=== PATIENT | male | born 1935 | race Caucasian/White ===

== ENCOUNTER → 2016-09-08 | Outpatient (CLI) | payer MEDICARE ==
[2016-09-08 16:36] LABS: BICARBONATE 28.9 MEQ/L (21.0-32.0); POTASSIUM 3.9 MEQ/L (3.5-5.1)
== END ==
LOC: PLAB 11:14
DX: Z79.899 Other long term (current) drug therapy (principal)
CPT/HCPCS: 36415; 80048

== ENCOUNTER → 2016-09-30 | Outpatient (CLI) | payer MEDICARE ==
[2016-09-30 09:10] LABS: BASOPHIL % 0.7 % (0.0-2.0); EOSINOPHIL # 0.4 TH/MM3 (0-0.4); EOSINOPHIL % 6.1 % (0.0-4.0); HEMATOCRIT 50.6 % (39.0-51.0); HEMO FLAGS DIFF FINAL; LYMPH % 31.3 % (9.0-44.0); LYMPHOCYTE # 1.8 TH/MM3 (1.0-4.8); MEAN CELL VOLUME 88.4 FL (80.0-100.0); MEAN CORPUSCULAR HEMOGLOBIN 30.8 PG (27.0-34.0); MEAN CORPUSCULAR HGB CONC 34.8 % (32.0-36.0); NEUT % 52.9 % (16.0-70.0); PLATELET COUNT 132 TH/MM3 (150-450); RED BLOOD COUNT 5.73 MIL/MM3 (4.50-5.90); RED CELL DISTRIBUTION WIDTH 13.9 % (11.6-17.2); WHITE BLOOD COUNT 5.8 TH/MM3 (4.0-11.0)
[2016-09-30 09:36] LABS: ALKALINE PHOSPHATASE 75 U/L (45-117); ALT (GPT) 31 U/L (12-78); ANION GAP 7 MEQ/L (5-15); AST (GOT) 26 U/L (15-37); BICARBONATE 28.9 MEQ/L (21.0-32.0); BLOOD UREA NITROGEN 10 MG/DL (7-18); CHLORIDE 102 MEQ/L (98-107); FREE T4 1.24 NG/DL (0.76-1.46); GLOMERULAR FILTRATION RATE 56 ML/MIN (>89); GLUCOSE,FASTING 108 MG/DL (74-99); HDL CHOLESTEROL 45.1 MG/DL (40.0-60.0); LDL CHOLESTEROL 107 MG/DL (0-99); SODIUM (NA) 138 MEQ/L (136-145); TOTAL BILIRUBIN ADULT 0.8 MG/DL (0.2-1.0)
== END ==
LOC: PLAB 06:41
PROVIDERS: ATTEND Family Medicine
DX: I10 Essential (primary) hypertension (principal); I48.91 Unspecified atrial fibrillation; E03.9 Hypothyroidism, unspecified; G70.00 Myasthenia gravis without (acute) exacerbation; N40.0 Benign prostatic hyperplasia without lower urinary tract symptoms
CPT/HCPCS: 36415; 80053; 80061; 84153; 84439; 84443; 85025

== ENCOUNTER → 2016-12-09 | Outpatient (CLI) | payer MEDICARE ==
[2016-12-09 10:12] LABS: POTASSIUM 4.1 MEQ/L (3.5-5.1)
[2016-12-09 10:15] LABS: BICARBONATE 30.7 MEQ/L (21.0-32.0)
== END ==
LOC: PLAB 08:59
DX: Z79.899 Other long term (current) drug therapy (principal)
CPT/HCPCS: 36415; 80048

== ENCOUNTER → 2017-03-17 | Outpatient (CLI) | payer MEDICARE ==
[2017-03-17 09:57] LABS: ANION GAP 7 MEQ/L (5-15); AST (GOT) 21 U/L (15-37); BICARBONATE 29.8 MEQ/L (21.0-32.0); BLOOD UREA NITROGEN 12 MG/DL (7-18); CHLORIDE 99 MEQ/L (98-107); GLOMERULAR FILTRATION RATE 58 ML/MIN (>89); POTASSIUM 3.9 MEQ/L (3.5-5.1); SODIUM (NA) 136 MEQ/L (136-145)
[2017-03-17 10:03] LABS: ALKALINE PHOSPHATASE 73 U/L (45-117); ALT (GPT) 31 U/L (12-78)
== END ==
LOC: PLAB 07:37
DX: G70.00 Myasthenia gravis without (acute) exacerbation (principal); Z51.81 Encounter for therapeutic drug level monitoring; Z79.899 Other long term (current) drug therapy
CPT/HCPCS: 36415; 80053

== ENCOUNTER → 2017-06-14 | Outpatient (CLI) | payer MEDICARE ==
[2017-06-14 16:29] LABS: ANION GAP 3 MEQ/L (5-15); AST (GOT) 18 U/L (15-37); BICARBONATE 33.7 MEQ/L (21.0-32.0); BLOOD UREA NITROGEN 13 MG/DL (7-18); CHLORIDE 101 MEQ/L (98-107); GLOMERULAR FILTRATION RATE 54 ML/MIN (>89); POTASSIUM 4.2 MEQ/L (3.5-5.1); SODIUM (NA) 138 MEQ/L (136-145)
[2017-06-14 16:31] LABS: ALT (GPT) 29 U/L (12-78)
[2017-06-14 16:32] LABS: ALKALINE PHOSPHATASE 78 U/L (45-117); TOTAL BILIRUBIN ADULT 0.7 MG/DL (0.2-1.0)
== END ==
LOC: PLAB 14:05
DX: G70.00 Myasthenia gravis without (acute) exacerbation (principal); Z51.81 Encounter for therapeutic drug level monitoring; Z79.899 Other long term (current) drug therapy
CPT/HCPCS: 36415; 80053

== ENCOUNTER → 2017-09-20 | Outpatient (CLI) | payer MEDICARE ==
[2017-09-20 14:52] LABS: ALBUMIN 3.3 GM/DL (3.4-5.0); AST (GOT) 25 U/L (15-37); BICARBONATE 31.4 MEQ/L (21.0-32.0); BLOOD UREA NITROGEN 13 MG/DL (7-18); CALCIUM 8.5 MG/DL (8.5-10.1); CHLORIDE 99 MEQ/L (98-107); CREATININE 1.21 MG/DL (0.60-1.30); GLOMERULAR FILTRATION RATE 58 ML/MIN (>89); GLUCOSE,RANDOM 132 MG/DL (74-106); SODIUM (NA) 137 MEQ/L (136-145)
[2017-09-20 14:56] LABS: ALKALINE PHOSPHATASE 75 U/L (45-117); ALT (GPT) 39 U/L (12-78); TOTAL BILIRUBIN ADULT 0.8 MG/DL (0.2-1.0); TOTAL PROTEIN 7.2 GM/DL (6.4-8.2)
== END ==
LOC: PLAB 12:00
DX: G70.00 Myasthenia gravis without (acute) exacerbation (principal); Z51.81 Encounter for therapeutic drug level monitoring; Z79.899 Other long term (current) drug therapy
CPT/HCPCS: 36415; 80053

== ENCOUNTER 2017-12-20 18:13 | Emergency (ER) | payer MEDICARE ==
[~2017-12-20] VITALS: Ht 185.4 cm; Wt 120.0 kg
[2017-12-20] MEDS ORDERED: AZITHROMYCIN INJ 500 MG in SODIUM CHLOR 0.9% 250 ML INJ 250 ML IV ONE (18:15)
[2017-12-20] MEDS ORDERED: SODIUM CHLORIDE 0.9% FLUSH 10 ML FLUSH IVF PRN (18:15)
[2017-12-20] MEDS ORDERED: MAGNESIUM SULFATE 1 GM PREMIX 100 ML IV ONE (18:15)
[2017-12-20] MEDS ORDERED: RESP: ALBUTEROL 2.5 MG/3 ML NEB (PRN) ONE (18:18)
[2017-12-20] MEDS: RESP: ALBUTEROL 2.5 MG/3 ML NEB (SCH) INH (18:22)
--- NOTE | 2017-12-20 18:22 | PD ---
HPI Chief Complaint: Shortness of breath Time Seen by Provider: 18:15 Travel History International Travel<30 days: No Contact w/Intl Traveler<30days: No Traveled to known affect area: No History of Present Illness HPI Patient has had 2 weeks worth of productive cough that he did not bring up to his primary care doctor. However over the last 2 days it seems to have been worsening with unaccompanied shortness of breath. Patient was seen by her primary care over the last 2 days and given a prescription for cough medicine. Patient states that he continues to have the productive cough, with yellowish to greenish sputum, and that he is shortness of breath is now present even at rest. Patient used to only get shortness of breath with wheezing when he would exert himself. Patient denies any alleviating or aggravating factors. Patient denies any associated factors such as fever, rash, sore throat, runny nose, nausea, vomiting, diarrhea, urgency/frequency/dysuria. Primary care doctor is Dr. pedro Allergy to penicillin he develops a rash pmh: Atrial fibrillation on Coumadin, myasthenia gravis on cyclosporine, hypertension on ramipril, hypercholesterolemia. The patient vehemently denies any COPD history or any CHF history. PFSH Social History Tobacco Use: No Allergies-Medications (Allergen,Severity, Reaction): Coded Allergies: Penicillins (Verified Allergy, Mild, Rash, 12/21/17) Reported Meds & Prescriptions Reported Meds & Active Scripts Active [guaiFENesin ER] 600 MG Tabcr 600 Mg PO BID Furosemide 20 Mg Tab 20 Mg PO DAILY Metoprolol Tartrate 25 Mg Tab 12.5 Mg PO Q12HR Azithromycin 250 Mg Tab 250 Mg PO DAILY Proair Hfa 8.5 GM Inh (Albuterol Sulfate) 90 Mcg/Act Aer 2 Puff INH Q4-6H PRN 108 mcg/actuation Reported Tums (Calcium Carbonate (Antacid)) 500 Mg Chew 500 Mg CHEW PRN Warfarin 7.5 Mg Tab 7.5 Mg PO DAILY Cyclosporine 25 Mg Cap 25 Mg PO Levothyroxine (Levothyroxine Sodium) 50 Mcg Tab 50 Mcg PO DAILY Ramipril 5 Mg Cap 5 Mg PO DAILY Finasteride 5 Mg Tab 5 Mg DAILY Do not crush. Review of Systems General / Constitutional: No: Fever Eyes: No: Visual changes HENT: No: Headaches Cardiovascular: No: Chest Pain or Discomfort Respiratory: Positive: Cough, Wheezing Gastrointestinal: No: Abdominal Pain Genitourinary: No: Dysuria Musculoskeletal: No: Pain Skin: No Rash Neurologic: No: Weakness Psychiatric: No: Depression Endocrine: No: Polydipsia Hematologic/Lymphatic: No: Easy Bruising Physical Exam Narrative GENERAL: SKIN: Warm and dry. HEAD: Atraumatic. Normocephalic. EYES: Pupils equal and round. No scleral icterus. No injection or drainage. ENT: No nasal bleeding or discharge. Mucous membranes pink and moist. NECK: Trachea midline. No JVD. CARDIOVASCULAR: Tachycardic rate and irregularly irregular rhythm. RESPIRATORY: Tachypneic, wheezing bilaterally, decreased tidal volume bilaterally GASTROINTESTINAL: Abdomen soft, non-tender, nondistended MUSCULOSKELETAL: Extremities without clubbing, cyanosis, or edema. No obvious deformities. NEUROLOGICAL: Awake and alert. No obvious cranial nerve deficits. Motor grossly within normal limits. Five out of 5 muscle strength in the arms and legs. Normal speech. PSYCHIATRIC: Appropriate mood and affect; insight and judgment normal. Data Data Last Documented VS Vital Signs Date Time Temp Pulse Resp B/P (MAP) Pulse Ox O2 Delivery O2 Flow Rate FiO2 12/20/17 21:06 84 20 130/68 (88) 97 12/20/17 19:58 Room Air 12/20/17 19:13 2.00 12/20/17 19:07 99.0 Orders Orders Complete Blood Count With Diff (12/20/17 18:15) Comprehensive Metabolic Panel (12/20/17 18:15) B-Type Natriuretic Peptide (12/20/17 18:15) Act Partial Throm Time (Ptt) (12/20/17 18:15) Prothrombin Time / Inr (Pt) (12/20/17 18:15) Ckmb (Isoenzyme) Profile (12/20/17 18:15) Troponin I (12/20/17 18:15) Influenzae A/B Antigen (12/20/17 18:15) Iv Access Insert/Monitor (12/20/17 18:15) Electrocardiogram (12/20/17 18:15) Ecg Monitoring (12/20/17 18:15) Oximetry (12/20/17 18:15) Oxygen Administration (12/20/17 18:15) Chest, Single Ap (12/20/17 18:15) Sodium Chloride 0.9% Flush (Ns Flush) (12/20/17 18:15) Azithromycin Inj (Zithromax Inj) (12/20/17 18:15) Magnesium Sulfate 1 Gm Premix (Magnesium (12/20/17 18:15) Albuterol Neb (Albuterol Neb) (12/20/17 18:15) Albuterol Neb (Albuterol Neb) (12/20/17 18:18) Metoprolol Tartrate Inj (Lopressor Inj) (12/20/17 19:30) Ed Discharge Order (12/20/17 20:58) Labs Laboratory Tests Test 12/20/17 18:35 White Blood Count 12.4 TH/MM3 Red Blood Count 5.34 MIL/MM3 Hemoglobin 17.0 GM/DL Hematocrit 49.5 % Mean Corpuscular Volume 92.6 FL Mean Corpuscular Hemoglobin 31.8 PG Mean Corpuscular Hemoglobin Concent 34.3 % Red Cell Distribution Width 12.8 % Platelet Count 133 TH/MM3 Mean Platelet Volume 9.7 FL Neutrophils (%) (Auto) 72.3 % Lymphocytes (%) (Auto) 16.1 % Monocytes (%) (Auto) 8.6 % Eosinophils (%) (Auto) 2.4 % Basophils (%) (Auto) 0.6 % Neutrophils # (Auto) 8.9 TH/MM3 Lymphocytes # (Auto) 2.0 TH/MM3 Monocytes # (Auto) 1.1 TH/MM3 Eosinophils # (Auto) 0.3 TH/MM3 Basophils # (Auto) 0.1 TH/MM3 CBC Comment DIFF FINAL Differential Comment Prothrombin Time 25.7 SEC Prothromb Time International Ratio 2.5 RATIO Activated Partial Thromboplast Time 35.4 SEC Blood Urea Nitrogen 9 MG/DL Creatinine 1.00 MG/DL Random Glucose 121 MG/DL Total Protein 7.3 GM/DL Albumin 3.3 GM/DL Calcium Level 8.3 MG/DL Alkaline Phosphatase 69 U/L Aspartate Amino Transf (AST/SGOT) 16 U/L Alanine Aminotransferase (ALT/SGPT) 26 U/L Total Bilirubin 1.2 MG/DL Sodium Level 131 MEQ/L Potassium Level 3.9 MEQ/L Chloride Level 97 MEQ/L Carbon Dioxide Level 26.0 MEQ/L Anion Gap 8 MEQ/L Estimat Glomerular Filtration Rate 72 ML/MIN Total Creatine Kinase 99 U/L Troponin I LESS THAN 0.02 NG/ML B-Type Natriuretic Peptide 109 PG/ML MDM Medical Decision Making Medical Screen Exam Complete: Yes Emergency Medical Condition: Yes Medical Record Reviewed: Yes Interpretation(s) EKG shows atrial fibrillation at about 120 bpm, but no evidence of any ST elevation OK pattern. Differential Diagnosis Pleural effusion versus pulmonary edema versus pneumonia versus STEMI versus non -STEMI Narrative Course Patient CBC shows leukocytosis of 12,000, minimal neutrophilia, no anemia, and slightly lower platelet count of 133,000 however the patient is on cyclosporine. Patient is adequately anticoagulated with an INR 2.5 Electrolytes are all within normal limits with the normal kidney function, normal liver function, first set of cardiac enzymes negative, and the first beta natruretic peptide of 109 which is within normal limits. on reevaluation patient isable to ambulation test passed without any hypoxemia, also able to tolerate po, and although rhythm remained afib ...rate has remained under a 100 with cvr Diagnosis Primary Impression: Acute bronchitic bronchospasm Additional Impression: Atrial fibrillation adequately anticoagulated Patient Instructions: Acute Bronchitis (ED), General Instructions Scripts Albuterol 8.5 GM Inh (Proair Hfa 8.5 GM Inh) 90 Mcg/Act Aer 2 PUFF INH Q4-6H Y for SHORTNESS OF BREATH, #1 INHALER 0 Refills 108 mcg/actuation Prov: Soren Puga MD 12/20/17 Disposition: 01 DISCHARGE HOME Condition: Stable Vu Connolly MD Dec 20, 2017 18:22
[2017-12-20 18:55] LABS: AUTOMATED NEUTROPHIL # 8.9 TH/MM3 (1.8-7.7); BASOPHIL # 0.1 TH/MM3 (0-0.2); BASOPHIL % 0.6 % (0.0-2.0); EOSINOPHIL # 0.3 TH/MM3 (0-0.4); EOSINOPHIL % 2.4 % (0.0-4.0); HEMATOCRIT 49.5 % (39.0-51.0); LYMPH % 16.1 % (9.0-44.0); MEAN CELL VOLUME 92.6 FL (80.0-100.0); MEAN CORPUSCULAR HEMOGLOBIN 31.8 PG (27.0-34.0); MEAN CORPUSCULAR HGB CONC 34.3 % (32.0-36.0); MEAN PLATELET VOLUME 9.7 FL (7.0-11.0); MONO % 8.6 % (0.0-8.0); MONOCYTE # 1.1 TH/MM3 (0-0.9); NEUT % 72.3 % (16.0-70.0); PLATELET COUNT 133 TH/MM3 (150-450); RED BLOOD COUNT 5.34 MIL/MM3 (4.50-5.90); RED CELL DISTRIBUTION WIDTH 12.8 % (11.6-17.2); WHITE BLOOD COUNT 12.4 TH/MM3 (4.0-11.0)
--- NOTE | 2017-12-20 18:56 | RADRPT ---
EXAM DATE: 12/20/2017 6:52 PM EDT AGE/SEX: 82 years / Male INDICATIONS: Shortness of breath. CLINICAL DATA: This is the patient's initial encounter. Patient reports that signs and symptoms have been present for 1 day and indicates a pain score of 0/10. MEDICAL/SURGICAL HISTORY: None. None. COMPARISON: No prior exams available for comparison. FINDINGS: A single AP view of the chest demonstrates no significant focal pleural or parenchymal opacities. Mil d interstitial prominence. The cardiomediastinal contours are unremarkable. Osseous structures are i ntact. CONCLUSION: 1. Senescent changes without acute cardiopulmonary disease. Electronically signed by: Markus Byers MD 12/20/2017 6:55 PM EDT
[2017-12-20 19:01] LABS: CHLORIDE 97 MEQ/L (98-107); SODIUM (NA) 131 MEQ/L (136-145)
[2017-12-20 19:04] LABS: CALCIUM 8.3 MG/DL (8.5-10.1)
[2017-12-20 19:05] VITALS: O2SAT 95
[2017-12-20 19:05] LABS: ALBUMIN 3.3 GM/DL (3.4-5.0); BLOOD UREA NITROGEN 9 MG/DL (7-18); GLUCOSE,RANDOM 121 MG/DL (74-106)
[2017-12-20 19:07] VITALS: BP 161/87; PULSE 114; RESP 20; TEMP 99; O2SAT 95
[2017-12-20 19:07] LABS: INTERNATIONAL NORMALIZED RATIO 2.5 RATIO; PROTHROMBIN TIME - PATIENT 25.7 SEC (9.8-11.6)
[2017-12-20 19:08] LABS: ALT (GPT) 26 U/L (12-78); AST (GOT) 16 U/L (15-37); GLOMERULAR FILTRATION RATE 72 ML/MIN (>89)
[2017-12-20 19:10] LABS: TOTAL BILIRUBIN ADULT 1.2 MG/DL (0.2-1.0); TOTAL PROTEIN 7.3 GM/DL (6.4-8.2)
[2017-12-20 19:11] LABS: ALKALINE PHOSPHATASE 69 U/L (45-117)
[2017-12-20 19:13] LABS: TROPONIN I LESS THAN 0.02 NG/ML (0.02-0.05)
[2017-12-20] MEDS ORDERED: ZITHTAB PO (19:19)
[2017-12-20] MEDS ORDERED: GUAISYP4 PO (19:19)
[2017-12-20] MEDS ORDERED: COUM5TAB PO (19:24)
[2017-12-20] MEDS ORDERED: FINA5TAB2 ×2 (19:24)
[2017-12-20] MEDS ORDERED: RAMI5CAP PO ×2 (19:24)
[2017-12-20] MEDS ORDERED: DOXA1TAB34 PO ×2 (19:24)
[2017-12-20] MEDS ORDERED: CYCL25CA4 PO ×2 (19:24)
[2017-12-20] MEDS ORDERED: HYDR12.57 PO ×2 (19:24)
[2017-12-20] MEDS ORDERED: LEVO50TA4 PO ×2 (19:24)
[2017-12-20] MEDS: METOPROLOL TARTRATE 5 MG/5 ML VIAL IVS SCH ×3 (19:40→20:01)
[2017-12-20 19:51] VITALS: BP 148/72; PULSE 120; RESP 20; O2SAT 95
[2017-12-20 19:58] VITALS: BP 126/54; PULSE 92; RESP 20; O2SAT 96
[2017-12-20 20:07] VITALS: BP 128/64; PULSE 79
[2017-12-20 21:06] VITALS: BP 130/68
[2017-12-20] MEDS ORDERED: ALBUAER3 INH (21:09)
--- NOTE | 2017-12-20 21:12 | PD ---
Physical Exam Time Seen by Provider: 21:[address] Connolly discharge this patient but this patient had some wheezes and wanted a prescription. He apparently did get good relief with the DuoNeb treatments. He will be given an albuterol HFA puffer since he does not have a nebulizer machine at home. He needs to follow-up with his primary care physician as soon as possible. Data Data Last Documented VS Vital Signs Date Time Temp Pulse Resp B/P (MAP) Pulse Ox O2 Delivery O2 Flow Rate FiO2 12/20/17 21:06 84 20 130/68 (88) 97 12/20/17 19:58 Room Air 12/20/17 19:13 2.00 12/20/17 19:07 99.0 Orders Orders Complete Blood Count With Diff (12/20/17 18:15) Comprehensive Metabolic Panel (12/20/17 18:15) B-Type Natriuretic Peptide (12/20/17 18:15) Act Partial Throm Time (Ptt) (12/20/17 18:15) Prothrombin Time / Inr (Pt) (12/20/17 18:15) Ckmb (Isoenzyme) Profile (12/20/17 18:15) Troponin I (12/20/17 18:15) Influenzae A/B Antigen (12/20/17 18:15) Iv Access Insert/Monitor (12/20/17 18:15) Electrocardiogram (12/20/17 18:15) Ecg Monitoring (12/20/17 18:15) Oximetry (12/20/17 18:15) Oxygen Administration (12/20/17 18:15) Chest, Single Ap (12/20/17 18:15) Sodium Chloride 0.9% Flush (Ns Flush) (12/20/17 18:15) Azithromycin Inj (Zithromax Inj) (12/20/17 18:15) Magnesium Sulfate 1 Gm Premix (Magnesium (12/20/17 18:15) Albuterol Neb (Albuterol Neb) (12/20/17 18:15) Albuterol Neb (Albuterol Neb) (12/20/17 18:18) Metoprolol Tartrate Inj (Lopressor Inj) (12/20/17 19:30) Ed Discharge Order (12/20/17 20:58) Labs Laboratory Tests Test 6/19/18 18:35 White Blood Count 12.4 TH/MM3 Red Blood Count 5.34 MIL/MM3 Hemoglobin 17.0 GM/DL Hematocrit 49.5 % Mean Corpuscular Volume 92.6 FL Mean Corpuscular Hemoglobin 31.8 PG Mean Corpuscular Hemoglobin Concent 34.3 % Red Cell Distribution Width 12.8 % Platelet Count 133 TH/MM3 Mean Platelet Volume 9.7 FL Neutrophils (%) (Auto) 72.3 % Lymphocytes (%) (Auto) 16.1 % Monocytes (%) (Auto) 8.6 % Eosinophils (%) (Auto) 2.4 % Basophils (%) (Auto) 0.6 % Neutrophils # (Auto) 8.9 TH/MM3 Lymphocytes # (Auto) 2.0 TH/MM3 Monocytes # (Auto) 1.1 TH/MM3 Eosinophils # (Auto) 0.3 TH/MM3 Basophils # (Auto) 0.1 TH/MM3 CBC Comment DIFF FINAL Differential Comment Prothrombin Time 25.7 SEC Prothromb Time International Ratio 2.5 RATIO Activated Partial Thromboplast Time 35.4 SEC Blood Urea Nitrogen 9 MG/DL Creatinine 1.00 MG/DL Random Glucose 121 MG/DL Total Protein 7.3 GM/DL Albumin 3.3 GM/DL Calcium Level 8.3 MG/DL Alkaline Phosphatase 69 U/L Aspartate Amino Transf (AST/SGOT) 16 U/L Alanine Aminotransferase (ALT/SGPT) 26 U/L Total Bilirubin 1.2 MG/DL Sodium Level 131 MEQ/L Potassium Level 3.9 MEQ/L Chloride Level 97 MEQ/L Carbon Dioxide Level 26.0 MEQ/L Anion Gap 8 MEQ/L Estimat Glomerular Filtration Rate 72 ML/MIN Total Creatine Kinase 99 U/L Troponin I LESS THAN 0.02 NG/ML B-Type Natriuretic Peptide 109 PG/ML [facility] Medical Record Reviewed: Yes Supervised Visit with MAYNOR: No Interpretation(s) The chest x-ray shows senescent changes and no acute change. Differential Diagnosis COPD with acute exacerbation, bronchitis with bronchospasm, pneumonia Narrative Course The patient apparently has bronchitis with bronchospasm. He will be given an HFA albuterol puffer. Diagnosis Primary Impression: Acute bronchitic bronchospasm Additional Impression: Atrial fibrillation adequately anticoagulated Patient Instructions: General Instructions, Acute Bronchitis (ED) Additional Instruction: I discussed, follow-up with your primary care physician as soon as possible. If her wheezing gets worse, you need to the emergency department. Scripts Albuterol 8.5 GM Inh (Proair Hfa 8.5 GM Inh) 90 Mcg/Act Aer 2 PUFF INH Q4-6H Y for SHORTNESS OF BREATH, #1 INHALER 0 Refills 108 mcg/actuation Prov: Soren Puga MD 12/20/17 Disposition: 01 DISCHARGE HOME Condition: Stable Soren Puga MD Dec 20, 2017 21:12
--- NOTE | 2017-12-21 07:31 | EKG ---
Date Performed: 12/20/2017 Time Performed: 18:41:38 PTAGE: 82 years EKG: ATRIAL FIBRILLATION WITH RAPID VENTRICULAR RESPONSE SEPTAL MYOCARDIAL INFARCTION ABNORMAL E CG NO PREVIOUS TRACING DOCTOR: Paulo Bradshaw Interpretating Date/Time 12/21/2017 07:29:04
[2017-12-21] MEDS ORDERED: WARF-21 PO ×2 (13:56)
[2017-12-21] MEDS ORDERED: TUMS500C CHEW ×2 (20:38)
== END 2017-12-20 21:24 | disposition home or self-care (01) ==
LOC: PHED 18:13
DX: J20.9 Acute bronchitis, unspecified (principal); I48.91 Unspecified atrial fibrillation; G70.00 Myasthenia gravis without (acute) exacerbation; I10 Essential (primary) hypertension; E78.00 Pure hypercholesterolemia, unspecified; Z88.0 Allergy status to penicillin; Z79.01 Long term (current) use of anticoagulants; Z79.899 Other long term (current) drug therapy
CPT/HCPCS: 71045; 80053; 82550; 83880; 84484; 85025; 85610; 85730; 87804; 93005; 94664; 96365; 96368; 99285; J0456; J3475; J7050; J7613

== ENCOUNTER 2017-12-21 13:31 | Inpatient (IN) | payer MEDICARE ==
[2017-12-21] VITALS (7 sets, daily range): BP systolic 125–154; BP diastolic 72–84; PULSE 95–112; RESP 16–26; TEMP 97.9–98; O2SAT 93–98
[~2017-12-21] VITALS: Ht 185.4 cm; Wt 120.0 kg
[~2017-12-21 13:31] MED LIST: ALBUAER3 INH; COUM5TAB PO; CYCL25CA4 PO; DOXA1TAB34 PO; FINA5TAB2; GUAISYP4 PO; HYDR12.57 PO; LEVO50TA4 PO; RAMI5CAP PO; ZITHTAB PO
[2017-12-21] MEDS ORDERED: WARF-21 PO ×2 (13:56)
[2017-12-21] MEDS ORDERED: SODIUM CHLORIDE 0.9% FLUSH 10 ML FLUSH IVF PRN (14:00)
[2017-12-21] MEDS: RESP: ALBUTEROL 2.5 MG/IPRATROPIUM 0.5 MG NEB (SCH) INH (14:04)
--- NOTE | 2017-12-21 14:06 | PD ---
HPI Chief Complaint: Respiratory Symptoms Time Seen by Provider: 13:40 Travel History International Travel<30 days: No Contact w/Intl Traveler<30days: No Traveled to known affect area: No History of Present Illness HPI 82-year-old male with a history of atrial fibrillation on Coumadin presents emergency department for evaluation of shortness of breath, cough, congestion that has been persistent. Says he went to the emergency department yesterday where he was given antibiotics, inhaler, and cough syrup. Says he received his first dose of medications last night and he took a second dose this morning however, says that he has been persistently short of breath. Says that his cold like symptoms started 2 weeks ago and has been progressively getting worse. Says he feels short of breath and "feeling crappy". He has had a productive cough with yellow and green sputum along with clear rhinorrhea. he denies fevers or chills. Denies chest pain, nausea, vomiting or diarrhea. He does not believe that he took his inhaler properly which is the reason for shortness of breath today. Says he did have recent travel of 6 hrs in a car. Denies history of DVT/PE. Denies history of COPD. Denies current tobacco use and says he quit 40 years ago. State compliance with coumadin. PFSH Past Medical History Hx Anticoagulant Therapy: Yes Atrial Fibrillation: Yes Heart Rhythm Problems: Yes Cardiovascular Problems: Yes (AFIB) COPD: Yes Diminished Hearing: No Hypertension: Yes Thyroid Disease: Yes Past Surgical History Appendectomy: Yes Tonsillectomy: Yes Other Surgery: Yes (nasal septoplasty) Social History Alcohol Use: Yes Tobacco Use: No Substance Use: No Allergies-Medications (Allergen,Severity, Reaction): Coded Allergies: Penicillins (Verified Allergy, Mild, Rash, 12/21/17) Reported Meds & Prescriptions Reported Meds & Active Scripts Active Proair Hfa 8.5 GM Inh (Albuterol Sulfate) 90 Mcg/Act Aer 2 Puff INH Q4-6H PRN 108 mcg/actuation Reported Warfarin 7.5 Mg Tab 7.5 Mg PO DAILY Cyclosporine 25 Mg Cap 25 Mg PO Doxazosin (Doxazosin Mesylate) 4 Mg Tab 4 Mg PO DAILY Levothyroxine (Levothyroxine Sodium) 50 Mcg Tab 50 Mcg PO DAILY Hydrochlorothiazide 12.5 Mg Cap 12.5 Mg PO DAILY Ramipril 5 Mg Cap 5 Mg PO DAILY Finasteride 5 Mg Tab 5 Mg DAILY Do not crush. Review of Systems Except as stated in HPI: all other systems reviewed are Neg Physical Exam Narrative GENERAL: Well developed, nourished in mild distress, tripoding in the room but able to talk in full sentences SKIN: Focused skin assessment warm/dry. HEAD: Atraumatic. Normocephalic. EYES: Pupils equal and round. No scleral icterus. No injection or drainage. ENT: No nasal bleeding or discharge. Mucous membranes pink and moist. NECK: Trachea midline. No JVD. No lymphadenopathy. Mucous membranes slightly dry CARDIOVASCULAR: Regular rate and rhythm. No murmur appreciated. RESPIRATORY: No accessory muscle use. Clear to auscultation somewhat decreased breath sounds diffusely GASTROINTESTINAL: Abdomen soft, non-tender, nondistended. Hepatic and splenic margins not palpable. No CVA tenderness MUSCULOSKELETAL: No obvious deformities. No clubbing. No cyanosis. No edema. Homans sign negative bilaterally NEUROLOGICAL: Awake and alert. No obvious cranial nerve deficits. Motor grossly within normal limits. Normal speech. PSYCHIATRIC: Appropriate mood and affect; insight and judgment normal. Data Data Last Documented VS Vital Signs Date Time Temp Pulse Resp B/P (MAP) Pulse Ox O2 Delivery O2 Flow Rate FiO2 12/21/17 14:00 93 Nasal Cannula 3.00 12/21/17 13:50 24 12/21/17 13:33 98.0 95 151/84 (106) Orders Orders Complete Blood Count With Diff (12/21/17 13:50) Comprehensive Metabolic Panel (12/21/17 13:50) Act Partial Throm Time (Ptt) (12/21/17 13:50) Prothrombin Time / Inr (Pt) (12/21/17 13:50) Magnesium (Mg) (12/21/17 13:50) Troponin I (12/21/17 13:50) Urinalysis - C+S If Indicated (12/21/17 13:50) Iv Access Insert/Monitor (12/21/17 13:50) Electrocardiogram (12/21/17 13:50) Ecg Monitoring (12/21/17 13:50) Oximetry (12/21/17 13:50) Oxygen Administration (12/21/17 13:50) Chest, Pa & Lat (12/21/17 13:50) Sodium Chloride 0.9% Flush (Ns Flush) (12/21/17 14:00) Albuterol-Ipratropium Neb (Duoneb Neb) (12/21/17 14:00) B-Type Natriuretic Peptide (12/21/17 13:50) Admit Order (Ed Use Only) (12/21/17 16:09) Labs Laboratory Tests Test 12/21/17 14:00 12/21/17 14:10 White Blood Count 15.4 TH/MM3 Red Blood Count 5.42 MIL/MM3 Hemoglobin 16.8 GM/DL Hematocrit 49.1 % Mean Corpuscular Volume 90.5 FL Mean Corpuscular Hemoglobin 31.0 PG Mean Corpuscular Hemoglobin Concent 34.3 % Red Cell Distribution Width 13.6 % Platelet Count 143 TH/MM3 Mean Platelet Volume 9.6 FL Neutrophils (%) (Auto) 88.4 % Lymphocytes (%) (Auto) 4.3 % Monocytes (%) (Auto) 7.0 % Eosinophils (%) (Auto) 0.0 % Basophils (%) (Auto) 0.3 % Neutrophils # (Auto) 13.6 TH/MM3 Lymphocytes # (Auto) 0.7 TH/MM3 Monocytes # (Auto) 1.1 TH/MM3 Eosinophils # (Auto) 0.0 TH/MM3 Basophils # (Auto) 0.0 TH/MM3 CBC Comment DIFF FINAL Differential Comment Prothrombin Time 21.6 SEC Prothromb Time International Ratio 2.1 RATIO Activated Partial Thromboplast Time 32.5 SEC Blood Urea Nitrogen 14 MG/DL Creatinine 1.26 MG/DL Random Glucose 126 MG/DL Total Protein 7.5 GM/DL Albumin 3.5 GM/DL Calcium Level 8.2 MG/DL Magnesium Level 2.1 MG/DL Alkaline Phosphatase 67 U/L Aspartate Amino Transf (AST/SGOT) 22 U/L Alanine Aminotransferase (ALT/SGPT) 24 U/L Total Bilirubin 0.8 MG/DL Sodium Level 131 MEQ/L Potassium Level 4.2 MEQ/L Chloride Level 96 MEQ/L Carbon Dioxide Level 24.2 MEQ/L Anion Gap 11 MEQ/L Estimat Glomerular Filtration Rate 55 ML/MIN Troponin I LESS THAN 0.02 NG/ML B-Type Natriuretic Peptide 220 PG/ML Urine Color YELLOW Urine Turbidity HAZY Urine pH 7.0 Urine Specific Osborne 1.009 Urine Protein NEG mg/dL Urine Glucose (UA) NEG mg/dL Urine Ketones NEG mg/dL Urine Occult Blood NEG Urine Nitrite NEG Urine Bilirubin NEG Urine Urobilinogen LESS THAN 2 mg/dL Urine Leukocyte Esterase NEG Urine RBC 2 /hpf Urine WBC LESS THAN 1 /hpf Microscopic Urinalysis Comment CULT NOT INDICATED MDM Medical Decision Making Medical Screen Exam Complete: Yes Emergency Medical Condition: Yes Differential Diagnosis Pneumonia, bronchitis, upper respiratory infection, asthma, Narrative Course 82-year-old male with a history of atrial fibrillation on Coumadin presents emergency department for evaluation of shortness of breath, cough, congestion that has been persistent. Says he went to the emergency department yesterday where he was given antibiotics, inhaler, and cough syrup. Says he received his first dose of medications last night and he took a second dose this morning however, says that he has been persistently short of breath. Says that his cold like symptoms started 2 weeks ago and has been progressively getting worse. Says he feels short of breath and "feeling crappy". He has had a productive cough with yellow and green sputum along with clear rhinorrhea. he denies fevers or chills. Denies chest pain, nausea, vomiting or diarrhea. He does not believe that he took his inhaler properly which is the reason for shortness of breath today. Says he did have recent travel of 6 hrs in a car. Denies history of DVT/PE. Denies history of COPD. Denies current tobacco use and says he quit 40 years ago. State compliance with coumadin. Vital signs demonstrate SaO2 92-94% on RA. Remaining VS stable. Pt placed on 2LPM O2 with improvement to 95% Duonebx2 administered. Chest x-ray without acute process. Labs demonstrate white blood cell count 15.4. Note that there was a questionable administration of prednisone by [facility] yesterday. Troponin negative. BNP 220, doubled form yesterday. No previous h/o CHF or other cardiac history. INR 2.1, therapeutic UA noncontributory. I suspect the patient may be developing pneumonia versus congestive heart failure. I have a low suspicion that this is a pulmonary embolus because of the therapeutic INR. We will admit this patient for acute hypoxic respiratory failure. Patient says he took his prescribed medication today which includes azithromycin, cough medication, and albuterol inhaler. Pt admitted to Dr. Hooks. Diagnosis Primary Impression: Acute respiratory failure with hypoxia Admitting Information Admitting Physician Requests: Observation Condition: Stable Selin Mejia Dec 21, 2017 14:06
[2017-12-21 14:10] LABS: AUTOMATED NEUTROPHIL # 13.6 TH/MM3 (1.8-7.7); BASOPHIL % 0.3 % (0.0-2.0); HEMATOCRIT 49.1 % (39.0-51.0); HEMOGLOBIN 16.8 GM/DL (13.0-17.0); LYMPH % 4.3 % (9.0-44.0); LYMPHOCYTE # 0.7 TH/MM3 (1.0-4.8); MEAN CELL VOLUME 90.5 FL (80.0-100.0); MEAN CORPUSCULAR HGB CONC 34.3 % (32.0-36.0); MEAN PLATELET VOLUME 9.6 FL (7.0-11.0); MONOCYTE # 1.1 TH/MM3 (0-0.9); NEUT % 88.4 % (16.0-70.0); PLATELET COUNT 143 TH/MM3 (150-450); RED BLOOD COUNT 5.42 MIL/MM3 (4.50-5.90); RED CELL DISTRIBUTION WIDTH 13.6 % (11.6-17.2); WHITE BLOOD COUNT 15.4 TH/MM3 (4.0-11.0)
[2017-12-21 14:22] LABS: INTERNATIONAL NORMALIZED RATIO 2.1 RATIO; PROTHROMBIN TIME - PATIENT 21.6 SEC (9.8-11.6)
[2017-12-21 14:32] LABS: ALKALINE PHOSPHATASE 67 U/L (45-117); ALT (GPT) 24 U/L (12-78); TOTAL BILIRUBIN ADULT 0.8 MG/DL (0.2-1.0); TOTAL PROTEIN 7.5 GM/DL (6.4-8.2); TROPONIN I LESS THAN 0.02 NG/ML (0.02-0.05)
[2017-12-21 14:40] LABS: ALBUMIN 3.5 GM/DL (3.4-5.0); AST (GOT) 22 U/L (15-37); BICARBONATE 24.2 MEQ/L (21.0-32.0); BLOOD UREA NITROGEN 14 MG/DL (7-18); CALCIUM 8.2 MG/DL (8.5-10.1); CHLORIDE 96 MEQ/L (98-107); CREATININE 1.26 MG/DL (0.60-1.30); GLOMERULAR FILTRATION RATE 55 ML/MIN (>89); GLUCOSE,RANDOM 126 MG/DL (74-106); MAGNESIUM 2.1 MG/DL (1.5-2.5); SODIUM (NA) 131 MEQ/L (136-145)
[2017-12-21 15:34] LABS: BILIRUBIN, URINE NEG (NEG); BLOOD, URINE NEG (NEG); GLUCOSE,URINE NEG (NEG); KETONE, URINE NEG (NEG); NITRITE,URINE NEG (NEG); URINE COLOR YELLOW (YELLW/STRAW); URINE LEUKOCYTE ESTERASE NEG (NEG)
--- NOTE | 2017-12-21 15:46 | RADRPT ---
EXAM DATE: 12/21/2017 3:33 PM EDT AGE/SEX: 82 years / Male INDICATIONS: Short of breath, cough. CLINICAL DATA: This is the patient's initial encounter. Patient reports that signs and symptoms have been present for 2 days and indicates a pain score of 0/10. MEDICAL/SURGICAL HISTORY: . atrial fibrillation, myasthenia gravis None. COMPARISON: [facility], CHEST SINGLE AP, 12/20/2017. . FINDINGS: The heart size is normal. The lungs are free of focal consolidation. On the lateral view, there is a 1.1 cm focal area of increased density projecting over the mid thoracic spine representing either a c alcified granuloma not seen on the frontal view versus a focal area of sclerosis within the thoracic spine. No effusion is seen. CONCLUSION: No acute cardiopulmonary process. Electronically signed by: Josep Reeves MD 12/21/2017 3:45 PM EDT
--- NOTE | 2017-12-21 16:18 | PD ---
Data Data Last Documented VS Vital Signs Date Time Temp Pulse Resp B/P (MAP) Pulse Ox O2 Delivery O2 Flow Rate FiO2 12/21/17 14:00 93 Nasal Cannula 3.00 12/21/17 13:50 24 12/21/17 13:33 98.0 95 151/84 (106) Orders Orders Complete Blood Count With Diff (12/21/17 13:50) Comprehensive Metabolic Panel (12/21/17 13:50) Act Partial Throm Time (Ptt) (12/21/17 13:50) Prothrombin Time / Inr (Pt) (12/21/17 13:50) Magnesium (Mg) (12/21/17 13:50) Troponin I (12/21/17 13:50) Urinalysis - C+S If Indicated (12/21/17 13:50) Iv Access Insert/Monitor (12/21/17 13:50) Electrocardiogram (12/21/17 13:50) Ecg Monitoring (12/21/17 13:50) Oximetry (12/21/17 13:50) Oxygen Administration (12/21/17 13:50) Chest, Pa & Lat (12/21/17 13:50) Sodium Chloride 0.9% Flush (Ns Flush) (12/21/17 14:00) Albuterol-Ipratropium Neb (Duoneb Neb) (12/21/17 14:00) B-Type Natriuretic Peptide (12/21/17 13:50) Admit Order (Ed Use Only) (12/21/17 16:09) Labs Laboratory Tests Test 12/21/17 14:00 12/21/17 14:10 White Blood Count 15.4 TH/MM3 Red Blood Count 5.42 MIL/MM3 Hemoglobin 16.8 GM/DL Hematocrit 49.1 % Mean Corpuscular Volume 90.5 FL Mean Corpuscular Hemoglobin 31.0 PG Mean Corpuscular Hemoglobin Concent 34.3 % Red Cell Distribution Width 13.6 % Platelet Count 143 TH/MM3 Mean Platelet Volume 9.6 FL Neutrophils (%) (Auto) 88.4 % Lymphocytes (%) (Auto) 4.3 % Monocytes (%) (Auto) 7.0 % Eosinophils (%) (Auto) 0.0 % Basophils (%) (Auto) 0.3 % Neutrophils # (Auto) 13.6 TH/MM3 Lymphocytes # (Auto) 0.7 TH/MM3 Monocytes # (Auto) 1.1 TH/MM3 Eosinophils # (Auto) 0.0 TH/MM3 Basophils # (Auto) 0.0 TH/MM3 CBC Comment DIFF FINAL Differential Comment Prothrombin Time 21.6 SEC Prothromb Time International Ratio 2.1 RATIO Activated Partial Thromboplast Time 32.5 SEC Blood Urea Nitrogen 14 MG/DL Creatinine 1.26 MG/DL Random Glucose 126 MG/DL Total Protein 7.5 GM/DL Albumin 3.5 GM/DL Calcium Level 8.2 MG/DL Magnesium Level 2.1 MG/DL Alkaline Phosphatase 67 U/L Aspartate Amino Transf (AST/SGOT) 22 U/L Alanine Aminotransferase (ALT/SGPT) 24 U/L Total Bilirubin 0.8 MG/DL Sodium Level 131 MEQ/L Potassium Level 4.2 MEQ/L Chloride Level 96 MEQ/L Carbon Dioxide Level 24.2 MEQ/L Anion Gap 11 MEQ/L Estimat Glomerular Filtration Rate 55 ML/MIN Troponin I LESS THAN 0.02 NG/ML B-Type Natriuretic Peptide 220 PG/ML Urine Color YELLOW Urine Turbidity HAZY Urine pH 7.0 Urine Specific [place] 1.009 Urine Protein NEG mg/dL Urine Glucose (UA) NEG mg/dL Urine Ketones NEG mg/dL Urine Occult Blood NEG Urine Nitrite NEG Urine Bilirubin NEG Urine Urobilinogen LESS THAN 2 mg/dL Urine Leukocyte Esterase NEG Urine RBC 2 /hpf Urine WBC LESS THAN 1 /hpf Microscopic Urinalysis Comment CULT NOT INDICATED MDM Supervised Visit with MAYNOR: Yes Narrative Course I, Dr. Galicia, have reviewed the advance practice practitioner's documentation and am in agreement, met with the patient face to face, made the diagnosis, and the medical decision making was done by me. *My assessment and Findings: Patient is asked for second visit in 2 days for dyspnea. He has borderline hypoxia on room air. He has wheezing on presentation. X-rays clear. There is no pulmonary edema or pneumonia or clinical suspicion of PE. He is on Coumadin chronically. He will require observation in the hospital. I reviewed with the hospitalist. Diagnosis Primary Impression: Acute respiratory failure with hypoxia Condition: Stable Jack Galicia MD Dec 21, 2017 16:18
--- NOTE | 2017-12-21 17:58 | HHI.HP ---
[facility]ician Wayne Heard MD Admission Diagnosis acute hypoxic respitatory failure Diagnoses: Chief Complaint: Shortness of breath Travel History International Travel<30 Days: No Contact w/Intl Traveler <30 Da: No Traveled to Known Affected Are: No History of Present Illness The patient is an 82-year-old male with a past medical history of myasthenia gravis who is presenting to the hospital with shortness of breath. The patient says that he came down with a cold about 2 weeks ago. He thought the cold would get better after 1 week. He says yesterday afternoon his shortness of breath got worse. He said he could not walk around from room to room in his condo. He denied any chest pain associated with the shortness of breath. He called for an ambulance and was taken to [facility] yesterday. He was discharged with a Z-Arie and an inhaler. He said that today he was not feeling well. He tried using the inhaler and that did not work. He did take his first dose of antibiotics today. As he was not feeling any better he decided to drive himself to the hospital. He says he did get his flu shot this year. He says he also had his pneumonia shot years ago. He does endorse minimal mucus production. He does feel a little bit better after receiving breathing treatments. Review of Systems Except as stated in HPI: all other systems reviewed are Neg Past Family Social History Past Medical History Atrial fibrillation Myasthenia gravis Hypertension BPH Past Surgical History Nose surgery Allergies: Coded Allergies: Penicillins (Verified Allergy, Mild, Rash, 12/21/17) Family History Pancreatic cancer Social History The patient quit smoking 40 years ago. He drinks 1 beer a day. Physical Exam Vital Signs Vital Signs Date Time Temp Pulse Resp B/P (MAP) Pulse Ox O2 Delivery O2 Flow Rate FiO2 12/21/17 14:00 93 Nasal Cannula 3.00 12/21/17 14:00 93 3.00 12/21/17 13:50 24 93 Nasal Cannula 2.00 12/21/17 13:33 98.0 95 26 151/84 (383) 17 Physical Exam GENERAL: This is a well-nourished, well-developed patient, in no apparent distress. SKIN: No rashes, ecchymoses or lesions. Cool and dry. HEAD: Atraumatic. Normocephalic. No temporal or scalp tenderness. EYES: Pupils equal round and reactive. Extraocular motions intact. No scleral icterus. No injection or drainage. ENT: Nose without bleeding, purulent drainage or septal hematoma. Throat without erythema, tonsillar hypertrophy or exudate. Uvula midline. Airway patent. NECK: Trachea midline. No JVD or lymphadenopathy. Supple, nontender, no meningeal signs. CARDIOVASCULAR: Regular rate and rhythm without murmurs, gallops, or rubs. RESPIRATORY: Diffuse expiratory wheezing. GASTROINTESTINAL: Abdomen soft, non-tender, obese. No hepato-splenomegaly, or palpable masses. No guarding. MUSCULOSKELETAL: Trace edema in the right lower extremity, 1+ edema in the left lower extremity. NEUROLOGICAL: Awake and alert. Cranial nerves II through XII intact. Motor and sensory grossly within normal limits. Five out of 5 muscle strength in all muscle groups. Normal speech. Laboratory Laboratory Tests Test 12/21/17 14:00 12/21/17 14:10 White Blood Count 15.4 Red Blood Count 5.42 Hemoglobin 16.8 Hematocrit 49.1 Mean Corpuscular Volume 90.5 Mean Corpuscular Hemoglobin 31.0 Mean Corpuscular Hemoglobin Concent 34.3 Red Cell Distribution Width 13.6 Platelet Count 143 Mean Platelet Volume 9.6 Neutrophils (%) (Auto) 88.4 Lymphocytes (%) (Auto) 4.3 Monocytes (%) (Auto) 7.0 Eosinophils (%) (Auto) 0.0 Basophils (%) (Auto) 0.3 Neutrophils # (Auto) 13.6 Lymphocytes # (Auto) 0.7 Monocytes # (Auto) 1.1 Eosinophils # (Auto) 0.0 Basophils # (Auto) 0.0 CBC Comment DIFF FINAL Differential Comment Prothrombin Time 21.6 Prothromb Time International Ratio 2.1 Activated Partial Thromboplast Time 32.5 Blood Urea Nitrogen 14 Creatinine 1.26 Random Glucose 126 Total Protein 7.5 Albumin 3.5 Calcium Level 8.2 Magnesium Level 2.1 Alkaline Phosphatase 67 Aspartate Amino Transf (AST/SGOT) 22 Alanine Aminotransferase (ALT/SGPT) 24 Total Bilirubin 0.8 Sodium Level 131 Potassium Level 4.2 Chloride Level 96 Carbon Dioxide Level 24.2 Anion Gap 11 Estimat Glomerular Filtration Rate 55 Troponin I LESS THAN 0.02 B-Type Natriuretic Peptide 220 Urine Color YELLOW Urine Turbidity HAZY Urine pH 7.0 Urine Specific [place] 1.009 Urine Protein NEG Urine Glucose (UA) NEG Urine Ketones NEG Urine Occult Blood NEG Urine Nitrite NEG Urine Bilirubin NEG Urine Urobilinogen LESS THAN 2 Urine Leukocyte Esterase NEG Urine RBC 2 Urine WBC LESS THAN 1 Microscopic Urinalysis Comment CULT NOT INDICATED Result Diagram: 12/21/17 1400 12/21/17 1400 Imaging Last Impressions Chest X-Ray 12/21/17 1350 Signed Impressions: CONCLUSION: No acute cardiopulmonary process. Caprini VTE Risk Assessment Caprini VTE Risk Assessment: Mod/High Risk (score >= 2) Caprini Risk Assessment Model Point Value = 1 Point Value = 2 Point Value = 3 Point Value = 5 Age 41-60 Minor surgery BMI > 25 kg/m2 Swollen legs Varicose veins or History of unexplained or recurrent spontaneous Oral contraceptives or hormone replacement Sepsis (< 1 month) Serious lung disease, including pneumonia (< 1 month) Abnormal pulmonary function Acute myocardial infarction Congestive heart failure (< 1 month) History of inflammatory bowel disease Medical patient at bed rest Age 61-74 Arthroscopic surgery Major open surgery (> 45 min) Laparoscopic surgery (> 45 min) Malignancy Confined to bed (> 72 hours) Immobilizing plaster cast Central venous access Age >= 75 History of VTE Family history of VTE Factor V Leiden Prothrombin [id number] Lupus anticoagulant Anticardiolipin antibodies Elevated serum homocysteine Heparin-induced thrombocytopenia Other congenital or acquired thrombophilia Stroke (< 1 month) Elective arthroplasty Hip, pelvis, or leg fracture Acute spinal cord injury (< 1 month) Prophylaxis Regimen Total Risk Factor Score Risk Level Prophylaxis Regimen 0-1 Low Early ambulation 2 Moderate Order ONE of the following: *Sequential Compression Device (SCD) *Heparin 5000 units SQ BID 3-4 Higher Order ONE of the following medications: *Heparin 5000 units SQ TID *Enoxaparin/Lovenox 40 mg SQ daily (WT < 150 kg, CrCl > 30 mL/min) *Enoxaparin/Lovenox 30 mg SQ daily (WT < 150 kg, CrCl > 10-29 mL/min) *Enoxaparin/Lovenox 30 mg SQ BID (WT < 150 kg, CrCl > 30 mL/min) AND/OR *Sequential Compression Device (SCD) 5 or more Highest Order ONE of the following medications: *Heparin 5000 units SQ TID (Preferred with Epidurals) *Enoxaparin/Lovenox 40 mg SQ daily (WT < 150 kg, CrCl > 30 mL/min) *Enoxaparin/Lovenox 30 mg SQ daily (WT < 150 kg, CrCl > 10-29 mL/min) *Enoxaparin/Lovenox 30 mg SQ BID (WT < 150 kg, CrCl > 30 mL/min) AND *Sequential Compression Device (SCD) Assessment and Plan Assessment and Plan Reactive airway disease/ Leukocytosis The patient has been endorsing shortness of breath for the past two weeks. He has a remote smoking history. He does have LE edema which is chronic. BNP is elevated. CXR unremarkable. He is hypoxemic. - continue IV azithromycin. - standing and as needed nebs. - check an echo. - incentive spirometry. - urinary legionella and strep antigens. Hyponatremia Appears hypervolemic. - fluid restriction. - monitor BMP. Myasthenia gravis Chronically on cyclosporine. - Continue cyclosporine. HTN Blood pressure mildly elevated. - resume home meds. - clonidine as needed. A fib On Coumadin. Rate controlled at this time. - continue Coumadin. - monitor on telemetry. PPx: Coumadin Code Status Full Discussed Condition With Vik Flor DO Dec 21, 2017 17:58
[2017-12-21] MEDS ORDERED: NALOXONE HCL 0.4 MG/ML AMP IV PUSH PRN (18:00)
[2017-12-21] MEDS ORDERED: ACETAMINOPHEN 325 MG TAB PO PRN ×2 (18:00)
[2017-12-21] MEDS ORDERED: SODIUM CHLORIDE 0.9% FLUSH 10 ML FLUSH IV FLUSH PRN (18:00)
[2017-12-21] MEDS ORDERED: cloNIDine HCL 0.1 MG TAB PO PRN (18:15)
[2017-12-21] MEDS: BENZONATATE 100 MG CAP PO PRN ×2 (18:45→20:57)
[2017-12-21] MEDS: cycloSPORINE 25 MG CAP PO SCH (18:45)
[2017-12-21] MEDS: RESP: ALBUTEROL 2.5 MG/IPRATROPIUM 0.5 MG NEB (SCH) NEB (19:26)
[2017-12-21] MEDS ORDERED: TUMS500C CHEW ×2 (20:38)
[2017-12-21] MEDS: SODIUM CHLORIDE 0.9% FLUSH 10 ML FLUSH IV FLUSH SCH (21:00)
[2017-12-21] MEDS: CALCIUM CARBONATE 500 MG CHEWABLE TAB CHEW PRN (21:47)
[2017-12-21] MEDS: RESP: ALBUTEROL 2.5 MG/IPRATROPIUM 0.5 MG NEB (PRN) NEB (22:46)
[2017-12-22] VITALS (7 sets, daily range): BP systolic 136–155; BP diastolic 78–86; PULSE 99–114; RESP 12–22; TEMP 97.1–98; O2SAT 94–96
[2017-12-22] MEDS: RESP: ALBUTEROL 2.5 MG/IPRATROPIUM 0.5 MG NEB (PRN) NEB ×2 (01:54→05:23)
[2017-12-22] MEDS: cycloSPORINE 25 MG CAP PO SCH ×2 (05:09→18:04)
[2017-12-22] MEDS: LEVOTHYROXINE SODIUM 50 MCG TAB PO SCH (05:09)
[2017-12-22] MEDS: RESP: ALBUTEROL 2.5 MG/IPRATROPIUM 0.5 MG NEB (SCH) NEB ×3 (07:51→19:34)
[2017-12-22] MEDS ORDERED: AZITHROMYCIN INJ 500 MG in SODIUM CHLOR 0.9% 250 ML INJ 250 ML IV SCH (09:00)
[2017-12-22] MEDS ORDERED: HYDROCHLOROTHIAZIDE 12.5 MG CAP PO SCH (09:00)
[2017-12-22] MEDS: RAMIPRIL 5 MG CAP PO SCH (09:49)
[2017-12-22] MEDS: FINASTERIDE 5 MG TAB PO SCH (09:49)
[2017-12-22] MEDS: DOXAZOSIN MESYLATE 4 MG TAB PO SCH (09:49)
[2017-12-22] MEDS: SODIUM CHLORIDE 0.9% FLUSH 10 ML FLUSH IV FLUSH SCH ×2 (09:50→21:00)
[2017-12-22] MEDS ORDERED: INFLUENZA VIRUS VACCINE (QUADRIVALENT) 0.5 ML SYR IM ONE (10:00)
[2017-12-22] MEDS ORDERED: PNEUMOCOCCAL POLYVALENT INJ 25 MCG/0.5 ML SYR IM ONE (10:00)
[2017-12-22 11:19] LABS: INTERNATIONAL NORMALIZED RATIO 2.7 RATIO; PROTHROMBIN TIME - PATIENT 26.8 SEC (9.8-11.6)
[2017-12-22 11:22] LABS: AUTOMATED NEUTROPHIL # 11.5 TH/MM3 (1.8-7.7); BASOPHIL % 0.2 % (0.0-2.0); EOSINOPHIL # 0.1 TH/MM3 (0-0.4); EOSINOPHIL % 0.5 % (0.0-4.0); HEMATOCRIT 47.9 % (39.0-51.0); HEMOGLOBIN 16.4 GM/DL (13.0-17.0); LYMPH % 3.7 % (9.0-44.0); LYMPHOCYTE # 0.5 TH/MM3 (1.0-4.8); MEAN CELL VOLUME 90.3 FL (80.0-100.0); MEAN CORPUSCULAR HEMOGLOBIN 30.9 PG (27.0-34.0); MEAN CORPUSCULAR HGB CONC 34.2 % (32.0-36.0); MEAN PLATELET VOLUME 10.3 FL (7.0-11.0); MONO % 9.8 % (0.0-8.0); MONOCYTE # 1.3 TH/MM3 (0-0.9); NEUT % 85.8 % (16.0-70.0); PLATELET COUNT 154 TH/MM3 (150-450); RED BLOOD COUNT 5.31 MIL/MM3 (4.50-5.90); RED CELL DISTRIBUTION WIDTH 13.3 % (11.6-17.2); WHITE BLOOD COUNT 13.4 TH/MM3 (4.0-11.0)
[2017-12-22 11:33] LABS: ALBUMIN 3.4 GM/DL (3.4-5.0); AST (GOT) 39 U/L (15-37); BICARBONATE 24.8 MEQ/L (21.0-32.0); BLOOD UREA NITROGEN 20 MG/DL (7-18); CALCIUM 8.7 MG/DL (8.5-10.1); CHLORIDE 91 MEQ/L (98-107); GLOMERULAR FILTRATION RATE 53 ML/MIN (>89); GLUCOSE,RANDOM 127 MG/DL (74-106); SODIUM (NA) 127 MEQ/L (136-145)
[2017-12-22 11:34] LABS: ALT (GPT) 30 U/L (12-78)
[2017-12-22 11:36] LABS: ALKALINE PHOSPHATASE 64 U/L (45-117); TOTAL BILIRUBIN ADULT 0.9 MG/DL (0.2-1.0); TOTAL PROTEIN 7.1 GM/DL (6.4-8.2)
--- NOTE | 2017-12-22 12:56 | ECHRPT ---
Indication: HEART FAILURE CONCLUSIONS Normal left ventricular size. Wall thickness is normal. The left ventricular systolic function is low normal with an estimated ejection fraction in the rang e of 50- 55%. Trace mitral valve regurgitation. BP: / HR: Rhythm: MEASUREMENTS (Male / Female) Normal Values Technical Quality: 2D ECHO LV Diastolic Diameter PLAX 4.8 cm 4.2 - 5.9 / 3.9 - 5.3 cm LV Systolic Diameter PLAX 3.5 cm IVS Diastolic Thickness 1.3 cm 0.6 - 1.0 / 0.6 - 0.9 cm LVPW Diastolic Thickness 0.9 cm 0.6 - 1.0 / 0.6 - 0.9 cm LV Relative Wall Thickness 0.5 RV Internal Dim ED PLAX 3.0 cm LA Systolic Diameter LX 5.0 cm 3.0 - 4.0 / 2.7 - 3.8 cm DOPPLER Mitral E Point Velocity 104.0 cm/s TR Peak Velocity 238.7 cm/s TR Peak Gradient 22.8 mmHg Right Atrial Pressure 10.0 mmHg Pulmonary Artery Systolic Pressu 32.8 mmHg Right Ventricular Systolic Press 32.8 mmHg FINDINGS LEFT VENTRICLE Normal left ventricular size. Wall thickness is normal. The left ventricular systolic function is low normal with an estimated ejection fraction in the rang e of 50- 55%. RIGHT VENTRICLE Normal right ventricular size and systolic function. LEFT ATRIUM The left atrial size is normal. RIGHT ATRIUM The right atrial size is normal. ATRIAL SEPTUM Normal atrial septal thickness without atrial level shunting by limited color doppler interrogation. AORTA The aortic root and proximal ascending aorta are normal in size on limited imaging. MITRAL VALVE Trace mitral valve regurgitation. AORTIC VALVE Trileaflet aortic valve. No aortic valve stenosis or regurgitation. TRICUSPID VALVE Structurally normal tricuspid valve. No tricuspid valve stenosis or regurgitation. PULMONARY VALVE No pulmonary valve regurgitation or stenosis. VESSELS The inferior vena cava is normal in size. PERICARDIUM No pericardial effusion. Joe Chiang MD, FACC, [facility] (Electronically Signed) Final Date:22 December 2017 12:55
[2017-12-22] MEDS ORDERED: FUROSEMIDE 20 MG/2 ML VIAL IV PUSH ONE (14:30)
[2017-12-22] MEDS ORDERED: METOPROLOL TARTRATE 25 MG TAB PO ONE (14:30)
[2017-12-22] MEDS ORDERED: guaiFENesin E.R. 600 MG TAB PO ONE (14:30)
--- NOTE | 2017-12-22 14:37 | HHI.PR ---
Subjective Remarks Follow-up on patient with shortness of breath. Patient seen and examined. Patient states his breathing is unchanged. He does not use oxygen at home. He complains of irritating cough without sputum production. He denies any fever or chills. He denies any chest pain. He denies any nausea, vomiting or abdominal pain. He denies any swelling in his legs or feet. Objective Vitals Vital Signs Date Time Temp Pulse Resp B/P (MAP) Pulse Ox O2 Delivery O2 Flow Rate FiO2 12/22/17 12:00 97.1 110 12 140/78 (98) 95 12/22/17 08:00 98.0 113 17 136/85 (102) 95 12/22/17 07:51 95 Nasal Cannula 3.00 12/22/17 00:27 97.5 114 22 140/78 (98) 95 12/21/17 20:28 97.9 112 16 149/72 (97) 94 12/21/17 19:29 95 Nasal Cannula 3.00 12/21/17 18:46 98.0 109 18 154/78 (103) 98 12/21/17 18:34 12/21/17 18:13 104 21 125/76 (92) 95 Nasal Cannula 3.00 12/21/17 16:00 94 Nasal Cannula 3.00 I/O 12/21/17 12/21/17 12/21/17 12/22/17 12/22/17 12/22/17 07:00 15:00 23:00 07:00 15:00 23:00 Intake Total 200 ml Output Total 400 ml Balance -200 ml Intake Oral 200 ml Output Urine Total 400 ml Result Diagram: 12/22/17 1019 12/22/17 1019 Imaging Last Impressions Chest X-Ray 12/21/17 1350 Signed Impressions: CONCLUSION: No acute cardiopulmonary process. Objective Remarks GENERAL: This is a well-nourished, well-developed overweight elderly male patient, in no apparent distress. Awake and alert. is at the bedside. SKIN: No rashes, ecchymoses or lesions. Cool and dry. HEAD: Atraumatic. Normocephalic. EYES: Pupils equal round and reactive. Extraocular motions intact. No scleral icterus. No injection or drainage. ENT: Nose without bleeding or purulent drainage. Airway patent. MMM. NECK: Trachea midline. CARDIOVASCULAR: Tachycardic, irregular without murmurs, gallops, or rubs. RESPIRATORY: No use of accessory muscles. Fair air entry. No wheezing or rhonchi noted. GASTROINTESTINAL: Abdomen soft, non-tender, obese. No hepato-splenomegaly, or palpable masses. No guarding. MUSCULOSKELETAL: Trace edema in bilateral lower extremities. NEUROLOGICAL: Awake and alert. Cranial nerves II through XII intact. Motor and sensory grossly within normal limits. No focal neurologic findings appreciated. Normal speech. PSYCHIATRIC: Calm and cooperative with exam. Normal judgment and insight. A/P Assessment and Plan 82-year-old male with a past medical history of myasthenia gravis who is presenting to the hospital with shortness of breath. Reactive airway disease/bronchitis Leukocytosis The patient has been endorsing shortness of breath for the past two weeks. He has a remote smoking history. He does have LE edema which is chronic. BNP is elevated. CXR unremarkable. He is hypoxemic. Chest x-ray shows no acute cardiopulmonary process Patient is currently satting 95% on 3 L. Patient does not use oxygen at home. Legionella and strep pneumo negative Echocardiogram with EF of 50- 55% White count trending down -Continue on IV azithromycin -Continue supplemental oxygen as needed -Continued on scheduled nebs -IS at bedside, encourage hourly use -Begin Mucinex BID -Continue to monitor clinically Hyponatremia, suspect secondary to fluid overload -Obtain serum and urine osmolality -Obtain TSH -Give IV Lasix 20 mg 1 dose -Hold hydrochlorothiazide -Continue on fluid restrictions Myasthenia gravis Chronically on cyclosporine -Continue on cyclosporine -Patient's family is concerned that patient's symptoms may be related to myasthenia gravis exacerbation. Will consult neurology, appreciate recommendations. -Patient evaluated by PT and no PT needs identified Hypertension, chronic Controlled -Continue on home BP medications -Clonidine as needed -Continue to monitor BP and adjust treatment accordingly Atrial fibrillation Tachycardic, heart rate running low 100s, suspect secondary to breathing treatments Chronically on Coumadin -Continue on Coumadin. INR 2.7 today. Pharmacy to dose -Continue to monitor on telemetry -begin low dose metoprolol twice daily, adjust as indicated DVT prophylaxis -Patient's on Coumadin Discharge Planning Not ready for discharge. Discharge pending clinical improvement and neurology assessment/recommendations. Rachael Gupta Dec 22, 2017 14:37
[2017-12-22] MEDS ORDERED: PILL SPLITTER OTHER PRN (15:15)
[2017-12-22] MEDS ORDERED: WARFARIN SOD 7.5 MG TAB PO SCH (16:00)
[2017-12-22 17:27] LABS: HEMOGLOBIN A1C 5.4 % (4.3-6.0)
[2017-12-22] MEDS ORDERED: diphenhydrAMINE HCL 25 MG CAP PO PRN (17:30)
[2017-12-22] MEDS: CALCIUM CARBONATE 500 MG CHEWABLE TAB CHEW PRN ×2 (18:04→21:26)
--- NOTE | 2017-12-22 18:48 | EKG ---
Date Performed: 12/21/2017 Time Performed: 14:45:53 PTAGE: 82 years EKG: ATRIAL FIBRILLATION WITH RAPID VENTRICULAR RESPONSE ABNORMAL RHYTHM ECG Since the PREVIOUS TRACING , no significant change noted PREVIOUS TRACIN12/20/2017 18.41 DOCTOR: Alesia Amaay Interpretating Date/Time 12/22/2017 18:46:06
--- NOTE | 2017-12-22 19:11 | MB ---
cc: Santos Barnard MD, David J MD DATE: 12/22/2017 HISTORY OF PRESENT ILLNESS: An 82-year-old right-handed man with a history of hypertension, A-fib on Coumadin. In 1995, he had some ptosis and difficulty swallowing up in [place]. He was diagnosed with myasthenia gravis. He has been on cyclosporine ever since. He does not take Mestinon as it never seemed to help him very much. He is followed up at [place] on cyclosporine. He has not had any problems ever since then. He has some chronic mild ptosis on the left eyelid, which he says is ever since 1995. He has had a cold for about the last 3 weeks. First a head cold and now it has gotten into his chest. He felt generally weak the other day and came into the hospital. He was in the ER down in [place] a few days before that with bronchospasm. I am asked to see him for myasthenia gravis. He got a Z-MIRLANDE and inhaler, still was not feeling well. He came into the hospital yesterday again. He had a pneumonia shot years ago. PAST MEDICAL HISTORY: As above. REVIEW OF SYSTEMS: He denied any diabetes, hypercholesterolemia, [place], stent, angioplasty, renal, hepatic, pulmonary disease, thyroid disease, lupus, ulcer, cancer, seizure, stroke. He denies any recent double vision. New ptosis, new trouble swallowing. SOCIAL HISTORY: Not a smoker, has 1 drink a day. Lives with his . FAMILY HISTORY: Positive for cancer in a sister. Negative for seizure, stroke. ALLERGIES: PENICILLIN. RECENT MEDICATIONS: 1. Finasteride. 2. Ramipril. 3. Hydrochlorothiazide. 4. Thyroid medicine 5. Doxazosin. 6. Cyclosporine 25 mg 7. Coumadin 7.5 8. Inhalers. 9. He continues on his cyclosporine. They have him here as 50 mg b.i.d. PHYSICAL EXAMINATION: VITAL SIGNS: Afebrile 111, 18, 150/86. He does have obviously some upper respiratory problems and some coughing, a little bit of a wet cough. NECK: There were no carotid bruits. HEART: Regular rhythm. I did not detect a murmur. NEUROLOGIC: Pupils are equal. Visual doe are full. Extraocular movements intact without nystagmus. There is a slight ptosis on the left, but his eye closure and buccal muscles and head flexion is normal, including on repetitive stimulation. He had normal strength in bilateral deltoids, finger extensors. Bilateral lower extremity strength was normal. Toes are downgoing bilaterally. DTRs are absent throughout. Pinprick is intact throughout. His speech is fluent. He is not aphasic. LABORATORY DATA: CBC: White count is 13,000. UA is negative. Coags: INR is 2.7. Basic metabolic profile: Sodium 127, had been 131 so it has actually come down a little bit since he has been in the hospital. Creatinine 1.3. LFTs are essentially unremarkable. Albumin 3.4. Thyroid study normal. IMAGING STUDIES: Chest x-ray was read as negative. ASSESSMENT AND PLAN: I thought overall he looked well neurologically. A little bit of wet in the back of his throat. He denies any trouble swallowing. We will keep an eye on him. Consider a modified barium swallow. Overall it looks like he does not have any major myasthenia acute exacerbation at this time. He has been stable since 1995 on his cyclosporine. We will check a cyclosporine level on him also. I would monitor his sodium and make sure it does not go too low. Can check a B12 level on him. We will also check his myasthenia gravis titer. MD CARMINA Walter/ , 06:45 PM , 07:10 PM
[2017-12-22 21:11] LABS: CYCLOSPORINE 53 COMMENT
[2017-12-22] MEDS: METOPROLOL TARTRATE 25 MG TAB PO SCH (21:26)
[2017-12-22] MEDS: BENZONATATE 100 MG CAP PO PRN (21:27)
[2017-12-22] MEDS: guaiFENesin E.R. 600 MG TAB PO SCH (21:27)
[2017-12-23 00:07] VITALS: BP 137/90; PULSE 85; RESP 18; TEMP 98.5; O2SAT 91
[2017-12-23] MEDS: LEVOTHYROXINE SODIUM 50 MCG TAB PO SCH (07:11)
[2017-12-23] MEDS: cycloSPORINE 25 MG CAP PO SCH (07:11)
--- NOTE | 2017-12-23 07:20 | HHI.PR ---
Subjective Remarks no new co Objective Vital Signs Date Time Temp Pulse Resp B/P (MAP) Pulse Ox O2 Delivery O2 Flow Rate FiO2 12/23/17 00:07 98.5 85 18 137/90 (106) 91 12/22/17 20:51 97.4 99 16 141/79 (99) 95 12/22/17 19:36 94 Nasal Cannula 3.00 12/22/17 16:04 97.7 111 18 155/86 (109) 96 12/22/17 12:00 97.1 110 12 140/78 (98) 95 12/22/17 08:00 98.0 113 17 136/85 (102) 95 12/22/17 07:51 95 Nasal Cannula 3.00 I/O 12/22/17 12/22/17 12/22/17 12/23/17 12/23/17 12/23/17 07:00 15:00 23:00 07:00 15:00 23:00 Intake Total 200 ml 870 ml Output Total 400 ml 625 ml Balance -200 ml 245 ml Intake Oral 200 ml 870 ml Output Urine Total 400 ml 625 ml # Voids 3 Result Diagram: 12/22/17 1019 12/22/17 1019 Objective Remarks voice strong nl gait still cough Assessment and Plan Assessment and Plan b12 nl cyclosporine a little low 53 ach rec ab pend he denies swallow problems i did order mbs but if med team feels ok could dc it ok neurowiseto dc and he can fu manly for the mg Santos Barnard MD Dec 23, 2017 07:20
[2017-12-23] MEDS: RESP: ALBUTEROL 2.5 MG/IPRATROPIUM 0.5 MG NEB (SCH) NEB (07:49)
[2017-12-23 07:53] LABS: AUTOMATED NEUTROPHIL # 7.1 TH/MM3 (1.8-7.7); BASOPHIL % 0.2 % (0.0-2.0); EOSINOPHIL # 0.1 TH/MM3 (0-0.4); EOSINOPHIL % 1.5 % (0.0-4.0); HEMATOCRIT 45.8 % (39.0-51.0); HEMOGLOBIN 16.2 GM/DL (13.0-17.0); LYMPH % 13.1 % (9.0-44.0); LYMPHOCYTE # 1.3 TH/MM3 (1.0-4.8); MEAN CELL VOLUME 89.2 FL (80.0-100.0); MEAN CORPUSCULAR HEMOGLOBIN 31.5 PG (27.0-34.0); MEAN CORPUSCULAR HGB CONC 35.3 % (32.0-36.0); MEAN PLATELET VOLUME 10.1 FL (7.0-11.0); MONO % 13.3 % (0.0-8.0); MONOCYTE # 1.3 TH/MM3 (0-0.9); NEUT % 71.9 % (16.0-70.0); PLATELET COUNT 138 TH/MM3 (150-450); RED BLOOD COUNT 5.13 MIL/MM3 (4.50-5.90); RED CELL DISTRIBUTION WIDTH 13.3 % (11.6-17.2); WHITE BLOOD COUNT 9.9 TH/MM3 (4.0-11.0)
[2017-12-23 08:02] LABS: INTERNATIONAL NORMALIZED RATIO 2.4 RATIO; PROTHROMBIN TIME - PATIENT 24.3 SEC (9.8-11.6)
[2017-12-23 08:11] VITALS: O2SAT 95
[2017-12-23 08:24] LABS: BICARBONATE 27.7 MEQ/L (21.0-32.0); CALCIUM 8.4 MG/DL (8.5-10.1); CREATININE 1.14 MG/DL (0.60-1.30)
[2017-12-23 08:36] VITALS: BP 160/90; PULSE 92; RESP 20; TEMP 98.2; O2SAT 96
[2017-12-23] MEDS: SODIUM CHLORIDE 0.9% FLUSH 10 ML FLUSH IV FLUSH SCH (08:50)
[2017-12-23] MEDS: DOXAZOSIN MESYLATE 4 MG TAB PO SCH (08:58)
[2017-12-23] MEDS: RAMIPRIL 5 MG CAP PO SCH (08:58)
[2017-12-23] MEDS: METOPROLOL TARTRATE 25 MG TAB PO SCH (08:58)
[2017-12-23] MEDS: guaiFENesin E.R. 600 MG TAB PO SCH (08:58)
[2017-12-23] MEDS: FINASTERIDE 5 MG TAB PO SCH (08:58)
--- NOTE | 2017-12-23 09:50 | RADRPT ---
EXAM DATE: 12/23/2017 9:40 AM EDT AGE/SEX: 82 years / Male INDICATIONS: Dysphagia, evaluate for aspiration CLINICAL DATA: This is the patient's subsequent encounter. Patient reports that signs and symptoms h ave been present for 2 days and indicates a pain score of 0/10. MEDICAL/SURGICAL HISTORY: . acute hypoxic respiratory failure None. COMPARISON: No prior exams available for comparison. FLUORO TIME: 1.2 IMAGE COUNT: 0 FINDINGS: A modified barium swallow was performed with speech pathology. Patient was given a variety of liquids to swallow. For a full detailed report, see report by the speech pathologist. CONCLUSION: No aspiration or penetration was seen. Electronically signed by: Josep Reeves MD 12/23/2017 9:49 AM EDT
[2017-12-23] MEDS ORDERED: guaiFENesin ER PO (11:19)
[2017-12-23] MEDS ORDERED: AZIT250T3 PO (11:19)
[2017-12-23] MEDS ORDERED: FURO20TA PO (11:19)
[2017-12-23] MEDS ORDERED: METO25TA3 PO (11:19)
--- NOTE | 2017-12-23 11:23 | HHI.DCPOC ---
Discharge Care Plan Diagnosis: (1) Fluid overload (2) Reactive airway disease with acute exacerbation (3) Hyponatremia (4) Acute respiratory failure with hypoxia (5) On Coumadin for atrial fibrillation Goals to Promote Your Health * To prevent worsening of your condition and complications * To maintain your health at the optimal level Directions to Meet Your Goals Recommend heart healthy low-salt diet Take your medications as prescribed Follow your dietary instruction Follow activity as directed Keep your appointments as scheduled Take your immunizations and boosters as scheduled If your symptoms worsen call your PCP, if no PCP go to Urgent Care Center or Emergency Room Smoking is Dangerous to Your Health. Avoid second hand smoke Call the 24-hour hour crisis hotline for domestic abuse at Rachael Gupta Dec 23, 2017 11:23
--- NOTE | 2017-12-23 11:26 | HHI.PR ---
Subjective Remarks Follow-up on patient with shortness of breath. Patient seen and examined. Patient states he is significantly improved. He reports his strength has returned and he is able to ambulate without any shortness of breath. He denies any fever chills. Denies any chest pain or shortness of breath. Denies any nausea, vomiting or abdominal pain. Objective Vitals Vital Signs Date Time Temp Pulse Resp B/P (MAP) Pulse Ox O2 Delivery O2 Flow Rate FiO2 12/23/17 08:36 98.2 92 20 160/90 (113) 96 12/23/17 08:11 95 12/23/17 00:07 98.5 85 18 137/90 (106) 91 12/22/17 20:51 97.4 99 16 141/79 (99) 95 12/22/17 19:36 94 Nasal Cannula 3.00 12/22/17 16:04 97.7 111 18 155/86 (109) 96 12/22/17 12:00 97.1 110 12 140/78 (98) 95 I/O 12/22/17 12/22/17 12/22/17 12/23/17 12/23/17 12/23/17 06:59 14:59 22:59 06:59 14:59 22:59 Intake Total 200 ml 870 ml Output Total 400 ml 625 ml Balance -200 ml 245 ml Intake Oral 200 ml 870 ml Output Urine Total 400 ml 625 ml # Voids 3 Result Diagram: 12/23/17 0650 12/23/17 0650 Imaging Last Impressions Modified Barium Swallow 12/23/17 0000 Signed Impressions: CONCLUSION: No aspiration or penetration was seen. Chest X-Ray 12/21/17 1350 Signed Impressions: CONCLUSION: No acute cardiopulmonary process. Objective Remarks GENERAL: This is a well-nourished, well-developed overweight elderly male patient, in no apparent distress. Awake and alert. is at the bedside. SKIN: No rashes, ecchymoses or lesions. Warm and dry. HEAD: Atraumatic. Normocephalic. EYES: Pupils equal round and reactive. Extraocular motions intact. No scleral icterus. No injection or drainage. ENT: Nose without bleeding or purulent drainage. Airway patent. MMM. NECK: Trachea midline. CARDIOVASCULAR: Irregular without murmurs, gallops, or rubs. RESPIRATORY: No use of accessory muscles. Fair air entry. No wheezing or rhonchi noted. GASTROINTESTINAL: Abdomen soft, non-tender, obese. No hepato-splenomegaly, or palpable masses. No guarding. MUSCULOSKELETAL: Trace edema in bilateral lower extremities extending up to thighs. NEUROLOGICAL: Awake and alert. Cranial nerves II through XII intact. Motor and sensory grossly within normal limits. No focal neurologic findings appreciated. Normal speech. PSYCHIATRIC: Calm and cooperative with exam. Normal judgment and insight. Procedures 2D Echo CONCLUSIONS Normal left ventricular size. Wall thickness is normal. The left ventricular systolic function is low normal with an estimated ejection fraction in the range of 50- 55%. Trace mitral valve regurgitation. A/P Assessment and Plan 82-year-old male with a past medical history of myasthenia gravis who is presenting to the hospital with shortness of breath. Reactive airway disease/bronchitis Leukocytosis The patient has been endorsing shortness of breath for the past two weeks. He has a remote smoking history. He does have LE edema which is chronic. BNP is elevated. CXR unremarkable. He is hypoxemic. Chest x-ray shows no acute cardiopulmonary process Patient is currently satting 95% on 3 L. Patient does not use oxygen at home. Legionella and strep pneumo negative Echocardiogram with EF of 50- 55% White count resolved 12/23 patient much improved. Reports his strength has returned. Denies any complaints of shortness of breath. Patient cannulated with nursing staff with oxygen saturations at 96%. -Continue on po azithromycin -Continue supplemental oxygen as needed -Continued on scheduled nebs -IS at bedside, encourage hourly use -Mucinex BID Hyponatremia, improving, asymptomatic -Discontinue hydrochlorothiazide -Continue on fluid restrictions Myasthenia gravis Chronically on cyclosporine -Continue on cyclosporine -Evaluated by neurology, appreciate assistance. Cleared for discharge. -Modified barium swallow obtain an unremarkable -Patient evaluated by PT and no PT needs identified Hypertension, chronic Controlled -Continue on terazosin and Ramipril. -Clonidine as needed -Continue to monitor BP and adjust treatment accordingly Atrial fibrillation Tachycardic, heart rate running low 100s, suspect secondary to breathing treatments Chronically on Coumadin -Continue on Coumadin. INR 2.4 today. Pharmacy to dose -Continue to monitor on telemetry -Continue on low dose metoprolol twice daily, adjust as indicated DVT prophylaxis -Patient's on Coumadin Discharge patient to home Condition on discharge: Improved Heart healthy low-salt diet as tolerated Ad Jodie activity Rx written: Metoprolol, Lasix, azithromycin and Mucinex Follow-up with primary care physician, cardiology and neurology Rachael Gupta Dec 23, 2017 11:26
[2017-12-23] MEDS ORDERED: AZITHROMYCIN 250 MG TAB PO ONE (12:00)
[2017-12-23] MEDS ORDERED: FUROSEMIDE 20 MG TAB PO ONE (12:00)
[2017-12-23 13:01] VITALS: BP 118/65; PULSE 96; RESP 18; TEMP 96.6; O2SAT 96
--- NOTE | 2017-12-23 15:34 | HHI.DS ---
Discharge Summary Admission Date Dec 22, 2017 at 14:14 Discharge Date: Dec 23, 2017 Admitting Diagnosis acute hypoxic respiratory failure (1) Reactive airway disease with acute exacerbation ICD Code: J45.901 - Unspecified asthma with (acute) exacerbation (2) Hyponatremia ICD Code: E87.1 - Hypo-osmolality and hyponatremia (3) Fluid overload ICD Code: E87.70 - Fluid overload, unspecified (4) On Coumadin for atrial fibrillation ICD Code: Z78.9 - Other specified health status (5) Myasthenia gravis ICD Code: G70.00 - Myasthenia gravis without (acute) exacerbation Procedures 2D Echo CONCLUSIONS Normal left ventricular size. Wall thickness is normal. The left ventricular systolic function is low normal with an estimated ejection fraction in the range of 50- 55%. Trace mitral valve regurgitation. Brief History - From Admission The patient is an 82-year-old male with a past medical history of myasthenia gravis who is presenting to the hospital with shortness of breath. The patient says that he came down with a cold about 2 weeks ago. He thought the cold would get better after 1 week. He says yesterday afternoon his shortness of breath got worse. He said he could not walk around from room to room in his condo. He denied any chest pain associated with the shortness of breath. He called for an ambulance and was taken to [facility] yesterday. He was discharged with a Z-Arie and an inhaler. He said that today he was not feeling well. He tried using the inhaler and that did not work. He did take his first dose of antibiotics today. As he was not feeling any better he decided to drive himself to the hospital. He says he did get his flu shot this year. He says he also had his pneumonia shot years ago. He does endorse minimal mucus production. He does feel a little bit better after receiving breathing treatments. CBC/BMP: 12/23/17 0650 12/23/17 0650 Significant Findings Laboratory Tests Test 12/21/17 14:00 12/21/17 14:10 12/22/17 10:19 12/22/17 16:16 White Blood Count 15.4 TH/MM3 (4.0-11.0) 13.4 TH/MM3 (4.0-11.0) Platelet Count 143 TH/MM3 (150-450) Neutrophils (%) (Auto) 88.4 % (16.0-70.0) 85.8 % (16.0-70.0) Lymphocytes (%) (Auto) 4.3 % (9.0-44.0) 3.7 % (9.0-44.0) Neutrophils # (Auto) 13.6 TH/MM3 (1.8-7.7) 11.5 TH/MM3 (1.8-7.7) Lymphocytes # (Auto) 0.7 TH/MM3 (1.0-4.8) 0.5 TH/MM3 (1.0-4.8) Monocytes # (Auto) 1.1 TH/MM3 (0-0.9) 1.3 TH/MM3 (0-0.9) Prothrombin Time 21.6 SEC (9.8-11.6) 26.8 SEC (9.8-11.6) Activated Partial Thromboplast Time 32.5 SEC (24.3-30.1) Random Glucose 126 MG/DL (74-106) 127 MG/DL (74-106) Calcium Level 8.2 MG/DL (8.5-10.1) Sodium Level 131 MEQ/L (136-145) 127 MEQ/L (136-145) Chloride Level 96 MEQ/L (98-107) 91 MEQ/L (98-107) Estimat Glomerular Filtration Rate 55 ML/MIN (>89) 53 ML/MIN (>89) Troponin I LESS THAN 0.02 NG/ML B-Type Natriuretic Peptide 220 PG/ML (0-100) Urine Turbidity HAZY (CLEAR) Monocytes (%) (Auto) 9.8 % (0.0-8.0) Blood Urea Nitrogen 20 MG/DL (7-18) Aspartate Amino Transf (AST/SGOT) 39 U/L (15-37) Serum Osmolality 265 MOSM/KG (275-295) Test 12/22/17 19:07 12/23/17 06:50 Platelet Count 138 TH/MM3 (150-450) Neutrophils (%) (Auto) 71.9 % (16.0-70.0) Monocytes (%) (Auto) 13.3 % (0.0-8.0) Monocytes # (Auto) 1.3 TH/MM3 (0-0.9) Prothrombin Time 24.3 SEC (9.8-11.6) Blood Urea Nitrogen 20 MG/DL (7-18) Calcium Level 8.4 MG/DL (8.5-10.1) Sodium Level 128 MEQ/L (136-145) Chloride Level 90 MEQ/L (98-107) Estimat Glomerular Filtration Rate 62 ML/MIN (>89) Imaging Last Impressions Modified Barium Swallow 12/23/17 0000 Signed Impressions: CONCLUSION: No aspiration or penetration was seen. Chest X-Ray 12/21/17 1350 Signed Impressions: CONCLUSION: No acute cardiopulmonary process. PE at Discharge GENERAL: This is a well-nourished, well-developed overweight elderly male patient, in no apparent distress. Awake and alert. is at the bedside. SKIN: No rashes, ecchymoses or lesions. Warm and dry. HEAD: Atraumatic. Normocephalic. EYES: Pupils equal round and reactive. Extraocular motions intact. No scleral icterus. No injection or drainage. ENT: Nose without bleeding or purulent drainage. Airway patent. MMM. NECK: Trachea midline. CARDIOVASCULAR: Irregular without murmurs, gallops, or rubs. RESPIRATORY: No use of accessory muscles. Fair air entry. No wheezing or rhonchi noted. GASTROINTESTINAL: Abdomen soft, non-tender, obese. No hepato-splenomegaly, or palpable masses. No guarding. MUSCULOSKELETAL: Trace edema in bilateral lower extremities extending up to thighs. NEUROLOGICAL: Awake and alert. Cranial nerves II through XII intact. Motor and sensory grossly within normal limits. No focal neurologic findings appreciated. Normal speech. PSYCHIATRIC: Calm and cooperative with exam. Normal judgment and insight. Pt update on day of discharge Follow-up on patient with shortness of breath. Patient seen and examined. Patient states he is significantly improved. He reports his strength has returned and he is able to ambulate without any shortness of breath. He denies any fever chills. Denies any chest pain or shortness of breath. Denies any nausea, vomiting or abdominal pain. Discussed with nursing staff, no issues noted. Hospital Course Patient admitted with complaints of shortness of breath ongoing for the past 2 weeks. Patient was hypoxic. He had leukocytosis with white count of 15.4. BNP found to be slightly elevated. He is also noted to be hyponatremic. Chest x-ray showed no acute cardiopulmonary process. Patient was started on IV antibiotics and supplemental oxygen as needed. He was placed on fluid restrictions and given IV Lasix. Echocardiogram was ordered which revealed EF of 50-55%. Given patient's history of myasthenia gravis, neurology was consulted to rule out possible exacerbation. Modified barium swallow was obtained and was unremarkable. Patient was cleared for discharge from a neurology standpoint. Patient experienced a rapid recovery. His hyponatremia began to improve. His breathing improved significantly and he no longer required the use of oxygen. He was able to ambulate without any drop in his O2 saturations. Patient was discharged earlier than expected due to unforeseen recovery. Pt Condition on Discharge: Stable Discharge Disposition: Discharge Home Discharge Time: > 30 minutes Discharge Instructions DIET: Follow Instructions for: Heart Healthy Diet, Low Sodium Diet Fluid Restrictions: 2 liters daily Activities you can perform: Regular-No Restrictions Follow up Referrals: Cardiology - 1 Week Neurology - 1 Week PCP Follow-up - 1 Week New Medications: Azithromycin (Azithromycin) 250 Mg Tab 250 MG PO DAILY for INFECTION, #5 TAB Furosemide (Furosemide) 20 Mg Tab 20 MG PO DAILY for Fluid overload, #30 TAB Metoprolol Tartrate (Metoprolol Tartrate) 25 Mg Tab 12.5 MG PO Q12HR for Blood Pressure Management, #30 TAB [guaiFENesin ER] () 600 MG TABCR 600 MG PO BID for Cough, #10 Continued Medications: Albuterol 8.5 GM Inh (Proair Hfa 8.5 GM Inh) 90 Mcg/Act Aer 2 PUFF INH Q4-6H PRN for SHORTNESS OF BREATH, #1 INHALER 0 Refills 108 mcg/actuation Calcium Carbonate (Antacid) (Tums) 500 Mg Chew 500 MG CHEW PRN for HEARTBURN, TAB 0 Refills Cyclosporine (Cyclosporine) 25 Mg Cap 25 MG PO, CAP 0 Refills Finasteride (Finasteride) 5 Mg Tab 5 MG DAILY for Manage Prostate Problems, #30 TAB 0 Refills Do not crush. Levothyroxine (Levothyroxine) 50 Mcg Tab 50 MCG PO DAILY for Thyroid, #30 TAB 0 Refills Ramipril (Ramipril) 5 Mg Cap 5 MG PO DAILY, #30 CAP 0 Refills Warfarin (Warfarin) 7.5 Mg Tab 7.5 MG PO DAILY for Blood Clot Prevention, #30 TAB 0 Refills Discontinued Medications: Doxazosin (Doxazosin) 4 Mg Tab 4 MG PO DAILY, #30 TAB 0 Refills Hydrochlorothiazide (Hydrochlorothiazide) 12.5 Mg Cap 12.5 MG PO DAILY, #30 CAP 0 Refills Rachael Gupta Dec 23, 2017 15:34
[2017-12-23] MEDS ORDERED: WARFARIN SOD 6 MG TAB PO SCH (16:00)
[2017-12-24] MEDS ORDERED: FUROSEMIDE 20 MG TAB PO SCH (09:00)
[2017-12-24] MEDS ORDERED: AZITHROMYCIN 250 MG TAB PO SCH (09:00)
== END 2017-12-23 15:37 | disposition home or self-care (01) | DRG 189 ==
LOC: NEPC 13:31 → NEDA 16:11 → NEPHCDU 18:26 → OBSVTOIN 12-22 14:14
PROVIDERS: ADMIT Hospitalist; ATTEND Hospitalist
DX: J96.01 Acute respiratory failure with hypoxia (principal); G70.00 Myasthenia gravis without (acute) exacerbation; I48.91 Unspecified atrial fibrillation; E87.1 Hypo-osmolality and hyponatremia; J45.901 Unspecified asthma with (acute) exacerbation; D72.829 Elevated white blood cell count, unspecified; N40.0 Benign prostatic hyperplasia without lower urinary tract symptoms; I10 Essential (primary) hypertension; Z87.891 Personal history of nicotine dependence; Z79.01 Long term (current) use of anticoagulants
CPT/HCPCS: 71046; 74230; 80048; 80053; 80158; 81001; 82607; 83036; 83519; 83735; 83880; 83930; 84443; 84484; 85025; 85610; 85730; 86255; 87449; 90732; 93005; 93306; 94150; 94640; 94664; G0378; G8996-GN; G8997-GN; G8998-GN; J0456; J1940; J7050; J7515